=== PATIENT | female | born 1960 | race Caucasian/White ===

== ENCOUNTER → 2020-02-26 | Outpatient (CLI) | payer BC ==
[~2020-02-26] MED LIST: ALBUTEROL SULFATE 0.083% NEB 2.5 MG/3 ML AMPUL NEB ONE
[2020-02-26 14:23] LABS: ARTERIAL BLOOD BASE EXCESS 2.4 mmol/L; ARTERIAL BLOOD H2CO3 1.45 mmol/L (1.05-1.35); ARTERIAL BLOOD HCO3 28.3 mmol/L (20-24); ARTERIAL BLOOD O2 SATURATION 90.1 % (94-98); ARTERIAL BLOOD PCO2 48.3 mmHg (35-45); ARTERIAL BLOOD PH 7.39 (7.35-7.45); ARTERIAL BLOOD PO2 59.1 mmHg (80-100); ARTERIAL BLOOD TOTAL CO2 29.8 mmol/L (21-25)
[2020-02-26 14:25] LABS: ARTERIAL BLOOD FIO2 21%
--- NOTE | 2020-02-27 15:51 | Pulmonary Function Test ---
Pulmonary Function Test Date of Procedure:: 02/26/20 INDICATION:: Dyspnea Referring Provider: Dr.Lakshmi Cyr Angle Shear Operator: Sonja Haney SENIOR JAVASCRIPT ENGINEER - Report Spirometry: Spirometry: pre-FVC: 2.27 L 74% post-FVC: 2.49 L 81% pre-FEV:1 0.84 L 33% post-FEV1: 1.05 L 42% pre-FEV1/FVC %: 37 post-FEV1/FVC%: 42 predicted: 83 [id number]%: 0.24 L 9% [id number]%: 0.33 L 12% Lung Volume: Total lung capacity: 3.81 L 77% Vital capacity: 2.27 L 74% Inspiratory capacity: 1.15 L FRC N2: 2.66 L 85% ERV: 0.66 L RV: 1.54 L 85% RV/TLC %:: 41 predicted 37 Diffusion Capactity: DLCO: 8.3 50% DLCO/VA: 2.94 74% Impression: Severe obstructive ventilatory defect minimal response to bronchodilator therapy. This does not preclude a clinical trial of bronchodilator therapy. Mild restrictive ventilatory defect. (Restrictive defect may mask the degree of obstruction.) No hyperinflation and no air trapping. Moderate decrease in diffusion capacity.
== END ==
LOC: RT 13:41
PROVIDERS: ATTEND Specialist
DX: J44.9 Chronic obstructive pulmonary disease, unspecified (principal); R06.00 Dyspnea, unspecified
CPT/HCPCS: 82803; 36600; 94729; 94727; 94060; J7613